=== PATIENT | female | born 1975 | race Caucasian/White ===

== ENCOUNTER 2016-09-06 22:56 | Emergency (ER) | payer MEDICAID ==
[~2016-09-06] VITALS: Ht 167.6 cm; Wt 125.5 kg
[2016-09-06] MEDS ORDERED: ALBU0.63 NEB (23:25)
[2016-09-06] MEDS ORDERED: DEXTROMETHORPHAN 30 MG/5 ML ORAL SOL PO ONE (23:30)
[2016-09-07] MEDS ORDERED: OLAN2.5T5 PO (00:01)
[2016-09-07] MEDS ORDERED: TRAZ50TA18 PO (00:03)
[2016-09-07] MEDS ORDERED: SODIUM CHLORIDE FLUSH 10ML SYR IVF ONE (00:30)
[2016-09-07 00:34] LABS: ASPARTATE AMINO TRANSFERASE 18 U/L (15-37); BLOOD UREA NITROGEN 14 mg/dL (7-18)
[2016-09-07] MEDS ORDERED: OMNIPAQUE 350 MG/ML, 100ML BOTTLE ONE (00:52)
[2016-09-07 02:32] VITALS: BP 134/64
== END 2016-09-07 02:37 | disposition home or self-care (01) ==
LOC: ED 09-07 02:26
DX: J20.8 Acute bronchitis due to other specified organisms (principal); J02.9 Acute pharyngitis, unspecified
CPT/HCPCS: 36415; 71020; 71260; 80053; 85025; 93005; 99285; Q9967

== ENCOUNTER 2016-10-07 09:22 | Emergency (ER) | payer MEDICAID ==
[~2016-10-07] VITALS: Ht 167.6 cm; Wt 123.6 kg
[~2016-10-07 09:22] MED LIST: ALBU0.63 NEB; OLAN2.5T5 PO; TRAZ50TA18 PO
[2016-10-07 09:32] VITALS: BP 153/85
== END 2016-10-07 11:29 | disposition home or self-care (01) ==
LOC: ED 10:57
DX: J01.00 Acute maxillary sinusitis, unspecified (principal); J01.20 Acute ethmoidal sinusitis, unspecified; J01.10 Acute frontal sinusitis, unspecified; I51.9 Heart disease, unspecified
CPT/HCPCS: 71020; 99284

== ENCOUNTER 2018-02-07 23:42 | Emergency (ER) | payer MEDICAID ==
[~2018-02-07] VITALS: Ht 170.2 cm; Wt 120.0 kg
[~2018-02-07 23:42] MED LIST changes: +OLAN2.5T10 PO; -OLAN2.5T5 PO; +TRAZ-136 PO; -TRAZ50TA18 PO
[2018-02-07 23:44] VITALS: BP 135/89
== END 2018-02-08 00:06 | disposition home or self-care (01) ==
LOC: ED 02-08
DX: J01.00 Acute maxillary sinusitis, unspecified (principal); E11.9 Type 2 diabetes mellitus without complications
CPT/HCPCS: 99283

== ENCOUNTER 2018-10-06 00:23 | Emergency (ER) | payer MEDICAID ==
[~2018-10-06] VITALS: Ht 167.6 cm; Wt 115.9 kg
[~2018-10-06 00:23] MED LIST changes: -TRAZ-136 PO; +TRAZ50TA66 PO
[2018-10-06] MEDS ORDERED: METO25TA35 PO (00:32)
[2018-10-06 00:57] LABS: BASOPHILS # (AUTO) 0.03 x10^3/uL (0-0.1); BASOPHILS % (AUTO) 0 % (0-1); EOSINOPHILS # (AUTO) 0.11 x10^3/uL (0-0.4); EOSINOPHILS % (AUTO) 1 % (1-7); LYMPHOCYTES # (AUTO) 2.34 x10^3/uL (1-3.4); LYMPHOCYTES % (AUTO) 24 % (22-44); MD NO; MEAN CORPUSCULAR HEMOGLOBIN 33.8 pg (27.0-34.8); MEAN CORPUSCULAR HGB CONC 33.1 g/dL (32.4-35.8); MONOCYTES # (AUTO) 0.85 x10^3/uL (0.2-0.8); MONOCYTES % (AUTO) 9 % (2-9); NEUTROPHILS # (AUTO) 6.36 x10^3/uL (1.8-6.8); NEUTROPHILS % (AUTO) 66 % (42-75); PLATELET COUNT 257 x10^3/uL (130-400); RED BLOOD COUNT 4.49 x10^6/uL (3.82-5.3); RED CELL DISTRIBUTION WIDTH 12.5 % (9.6-15.2)
[2018-10-06 01:09] LABS: ALANINE AMINOTRANSFERASE 23 U/L (12-78); ALBUMIN 3.9 g/dL (3.4-5.0); ANION GAP 9 mmol/L (5-15); CALCIUM 9.2 mg/dL (8.5-10.1); CHLORIDE 102 mmol/L (98-107); CREATININE 0.84 mg/dL (0.55-1.02)
[2018-10-06 01:13] LABS: ALKALINE PHOSPHATASE 81 U/L (45-117); BILIRUBIN,TOTAL 0.2 mg/dL (0.2-1.0); TROPONIN I < 0.015 ng/mL (0.000-0.045)
[2018-10-06 01:34] VITALS: BP 127/59
== END 2018-10-06 01:38 | disposition home or self-care (01) ==
LOC: ED 01:36
DX: R07.2 Precordial pain (principal); E11.9 Type 2 diabetes mellitus without complications
CPT/HCPCS: 36415; 71045; 80053; 83690; 84484; 85025; 93005; 99284

== ENCOUNTER 2019-01-20 16:01 | Emergency (ER) | payer MEDICAID ==
[~2019-01-20] VITALS: Ht 167.6 cm; Wt 114.0 kg
[~2019-01-20 16:01] MED LIST changes: +METO25TA35 PO
[2019-01-20 16:27] VITALS: BP 127/51
--- NOTE | 2019-01-20 16:28 | NUR ---
THIS IS A 43 YO FEMALE THAT CAME IN FOR ABD PAIN WITH LOOSE STOOLS FOR 3 DAYS. DENIES N/V. PT REPORTS STOOLS ARE BROWN/ YELLOW BUT SHE IS GOING MORE OFTEN AND IS HAVING CRAMPING. PT IS CONNECTED TO MONITORING AT THIS TIME, VSS. PT IS CONVERSING WITH AT BEDSIDE WATCHING TV. CALL LIGHT WITHIN REACH Addendum: 01/20/19 at 1707 by [email or web address] PER PT STOOLS ARE SOFTER THAN NORMAL, NO RECENT ABX.
[2019-01-20] MEDS ORDERED: MELO7.5T31 PO (16:32)
[2019-01-20] MEDS ORDERED: OMEP10CA5 PO (16:32)
--- NOTE | 2019-01-20 17:08 | NUR ---
D/C ORDERS RECEIVED, NO ADDITIONAL ORDERS FOR FURTHER TESTING PER MD
--- NOTE | 2019-01-20 18:03 | NUR ---
Patient/Caregiver given discharge instructions and they have confirmed that they understand the instructions. Patient ambulatory with steady gait.
== END 2019-01-20 18:04 | disposition home or self-care (01) ==
LOC: ED 17:50
DX: K64.8 Other hemorrhoids (principal); K59.00 Constipation, unspecified; E11.9 Type 2 diabetes mellitus without complications; F31.9 Bipolar disorder, unspecified
CPT/HCPCS: 99282